=== PATIENT | male | born 1955 | race Caucasian/White ===

== ENCOUNTER 2016-11-10 21:26 | Emergency (ER) | payer OTHER ==
[~2016-11-10] VITALS: Ht 172.7 cm; Wt 106.1 kg
[2016-11-10] MEDS ORDERED: PERCOCET 5/31 TABLET PO (23:38)
[2016-11-11 00:09] VITALS: BP 169/94
== END 2016-11-11 00:10 | disposition home or self-care (01) ==
LOC: EDBD 21:26 → EME 21:26
DX: S22.069A Unspecified fracture of T7-T8 vertebra, initial encounter for closed fracture (principal); V43.52XA Car driver injured in collision with other type car in traffic accident, initial encounter; Y92.410 Unspecified street and highway as the place of occurrence of the external cause; I10 Essential (primary) hypertension; E78.5 Hyperlipidemia, unspecified; E11.9 Type 2 diabetes mellitus without complications
CPT/HCPCS: 71250; 72128; 99281; 99284; J3010; J7030